=== PATIENT | female | born 1935 | race Caucasian/White ===

== ENCOUNTER 2017-03-06 00:03 | Emergency (ER) | payer MEDICARE ==
[~2017-03-06] VITALS: Ht 160 cm; Wt 64.0 kg
[~2017-03-06 00:03] MED LIST: ATRO17AE INH; CRES10TA PO; DIPH1TAB36 PO; DOCU1CAP39 PO; FURO1TAB93 PO; KCL10C PO; LOSA50TA PO; METO50CR PO; MULT-4 PO; PROT40TA PO; TIMO0.255 EACH EYE; TRAV0.00 EACH EYE; WARF3TAB PO
[2017-03-06 00:05] VITALS: BP 114/68; TEMP 103; O2SAT 99
[2017-03-06 00:13] VITALS: BP 185/78; PULSE 90; RESP 16; TEMP 98; O2SAT 98
--- NOTE | 2017-03-06 00:25 | PD ---
HPI Chief Complaint: MULTIPLE COMPLAINTS Time Seen by Provider: 00:10 Travel History International Travel<30 days: No Contact w/Intl Traveler<30days: No Traveled to known affect area: No History of Present Illness HPI STATES THAT SHE HAD CYSTOSCOPY TO "SCRAPE" BLADDER TUMOR OFF ON TUESDAY...SINCE THEN PATIENT HAS NOT BEEN FEELING "RIGHT". SOME DETAILS OF WHAT NOT RIGHT MEANS , IS NAUSEA, GENERALIZED WEAKNESS, COUGH, PROD OF YELLOW SPUTUM, SOME DIARRHEA ALSO. PCP DR WYMAN IN [place] CHART AND RN NOTES REVIEWED ALL:DENIES PMHX: SIG FOR COPD, CHF, PFSH Past Medical History Atrial Fibrillation: Yes (ON WARFARIN) Heart Rhythm Problems: Yes (AFIB) Cancer: Yes (BLADDER) Cardiovascular Problems: Yes High Cholesterol: Yes Chemotherapy: Yes Chest Pain: No Congestive Heart Failure: Yes (ADMITTED WITH DX) COPD: Yes Diminished Hearing: No Diverticulitis: Yes Endocrine: No Glaucoma: Yes Genitourinary: Yes (HX OF BLADDER CANCER WITH CHEMO TREATMENT) Hypertension: Yes Immune Disorder: No Musculoskeletal: No Neurologic: No Psychiatric: No Reproductive: No Respiratory: Yes Immunizations Current: Yes Radiation Therapy: No Ulcer: Yes (HX OF BLEEDING ULCER) Menopausal: Yes : 2 Para: 2 Past Surgical History Abdominal Surgery: No AICD: No Arteriovenous Shunt: No Body Medical Devices: STENTS IN BILAT GROIN Cardiac Surgery: No Section: Yes (X1) Ear Surgery: No Endocrine Surgery: No Eye Surgery: No Genitourinary Surgery: No Gynecologic Surgery: No Insulin Pump: No Joint Replacement: No Oral Surgery: No Pacemaker: No Thoracic Surgery: No Other Surgery: Yes (Femoral stents) Social History Alcohol Use: Yes (Occ) Tobacco Use: No Substance Use: No Allergies-Medications (Allergen,Severity, Reaction): Coded Allergies: No Known Allergies (Verified Adverse Reaction, Unknown, 03/06/17) Reported Meds & Prescriptions Reported Meds & Active Scripts Active KCl 10 Meq Cap (Potassium Chloride) 10 Meq Capcr 10 Meq PO DAILY Atrovent Hfa (Ipratropium [place]) 17 Mcg Aer 2 Puff INH BID 17 MCG/PUFF Reported Travatan Z (Travoprost) 0.004 % Glen 1 Drop EACH EYE HS Colace 100 Mg Cap (Docusate Sodium) 100 Mg Cap 100 Mg PO DAILY Losartan Potassium 50 MG (Losartan Potassium) 50 Mg Tab 50 Mg PO DAILY Protonix (Pantoprazole Sodium) 40 Mg Tabdr 40 Mg PO DAILY Lasix (Furosemide) 40 Mg Tab 40 Mg PO DAILY Warfarin Sodium 3 mg (Warfarin Sodium) 3 Mg Tab 3 Mg PO DAILY Tylenol Pm (Acetaminophen/Diphenhydramine HCl) Tab 1 Tab PO HS Timoptic (Timolol Maleate) 0.25 % Soln 1 Drop EACH EYE DAILY Vitalee (Multivitamins) Tab 1 PO DAILY Crestor (Rosuvastatin Calcium) 10 Mg Tab 10 Mg PO DAILY Metoprolol Succinate ER (Metoprolol Succinate) 50 Mg Tab 50 Mg PO DAILY Review of Systems Except as stated in HPI: all other systems reviewed are Neg General / Constitutional: Positive: Fever Respiratory: Positive: Cough, Wheezing Gastrointestinal: Positive: Nausea, Diarrhea Neurologic: Positive: Weakness Physical Exam Narrative GENERAL: SKIN: Warm and dry. HEAD: Atraumatic. Normocephalic. EYES: Pupils equal and round. No scleral icterus. No injection or drainage. ENT: No nasal bleeding or discharge. Mucous membranes pink and moist. NECK: Trachea midline. No JVD. CARDIOVASCULAR: Regular rate and rhythm. RESPIRATORY: No accessory muscle use. WHEEZING, RONCHI BILATERALLY GASTROINTESTINAL: Abdomen soft, non-tender, nondistended. MUSCULOSKELETAL: Extremities without clubbing, cyanosis, or edema. No obvious deformities. NEUROLOGICAL: Awake and alert. No obvious cranial nerve deficits. Motor grossly within normal limits. Five out of 5 muscle strength in the arms and legs. Normal speech. PSYCHIATRIC: Appropriate mood and affect; insight and judgment normal. Data Data Last Documented VS Vital Signs Date Time Temp Pulse Resp B/P (MAP) Pulse Ox O2 Delivery O2 Flow Rate FiO2 03/06/17 00:13 98.0 90 16 185/78 (113) 98 Orders Orders Electrocardiogram (03/06/17 00:25) Complete Blood Count With Diff (03/06/17 00:25) Comprehensive Metabolic Panel (03/06/17 00:25) Troponin I (03/06/17 00:25) Prothrombin Time / Inr (Pt) (03/06/17 00:25) Act Partial Throm Time (Ptt) (03/06/17 00:25) Lipase (03/06/17 00:25) Urinalysis - C+S If Indicated (03/06/17 00:25) Influenzae A/B Antigen (03/06/17 00:25) Chest, Single Ap (03/06/17 00:25) Iv Access Insert/Monitor (03/06/17 00:25) Ecg Monitoring (03/06/17 00:25) Oximetry (03/06/17 00:25) Labs Laboratory Tests Test 03/06/17 01:00 White Blood Count 9.1 TH/MM3 Red Blood Count 4.03 MIL/MM3 Hemoglobin 12.4 GM/DL Hematocrit 36.8 % Mean Corpuscular Volume 91.3 FL Mean Corpuscular Hemoglobin 30.8 PG Mean Corpuscular Hemoglobin Concent 33.7 % Red Cell Distribution Width 13.0 % Platelet Count 248 TH/MM3 Mean Platelet Volume 9.5 FL Neutrophils (%) (Auto) 68.8 % Lymphocytes (%) (Auto) 17.9 % Monocytes (%) (Auto) 11.5 % Eosinophils (%) (Auto) 0.6 % Basophils (%) (Auto) 1.2 % Neutrophils # (Auto) 6.3 TH/MM3 Lymphocytes # (Auto) 1.6 TH/MM3 Monocytes # (Auto) 1.0 TH/MM3 Eosinophils # (Auto) 0.1 TH/MM3 Basophils # (Auto) 0.1 TH/MM3 CBC Comment DIFF FINAL Differential Comment Prothrombin Time 10.8 SEC Prothromb Time International Ratio 1.1 RATIO Activated Partial Thromboplast Time 27.0 SEC Blood Urea Nitrogen 22 MG/DL Creatinine 1.18 MG/DL Random Glucose 119 MG/DL Total Protein 7.4 GM/DL Albumin 3.8 GM/DL Calcium Level 8.8 MG/DL Alkaline Phosphatase 71 U/L Aspartate Amino Transf (AST/SGOT) 24 U/L Alanine Aminotransferase (ALT/SGPT) 21 U/L Total Bilirubin 0.7 MG/DL Sodium Level 137 MEQ/L Potassium Level 3.4 MEQ/L Chloride Level 100 MEQ/L Carbon Dioxide Level 29.6 MEQ/L Anion Gap 7 MEQ/L Estimat Glomerular Filtration Rate 44 ML/MIN Troponin I LESS THAN 0.02 NG/ML Lipase 512 U/L [facility] Medical Decision Making Medical Screen Exam Complete: Yes Emergency Medical Condition: Yes Medical Record Reviewed: Yes Differential Diagnosis FLU V PNA V CHF V COPD V GASTROENTERITIS Narrative Course FLU TEST NEG, CXR NEG FOR CHF/PNA....PATIENT SYMPTOMATICALLY C/W GASTROENTERITIS. MILD ELEVATION OF LIPASE, BUT NOT QUITE 2-3X THE BASELINE TO FULLY DIAGNOSE PANCREATITIS. PATIENT TOLERATED PO WELL, AND WOULD LIKE AN OUTPATIENT TRIAL Diagnosis Primary Impression: GASTROENTERITIS Patient Instructions: Full Liquid Diet (GEN), General Instructions, Pancreatitis (ED) Scripts Codeine-Acetaminophen (Codeine-Acetaminophen) 30-300 mg Tab 1 TAB PO Q4H Y for PAIN, #15 TAB 0 Refills Prov: Armaan Rubio MD 03/06/17 Ondansetron (Zofran) 4 Mg Tab 4 MG PO Q6HR Y for NAUSEA OR VOMITING, #14 TAB 0 Refills Prov: Armaan Rubio MD 03/06/17 Disposition: 01 DISCHARGE HOME Condition: Stable Armaan Rubio MD Mar 06, 2017 00:25
--- NOTE | 2017-03-06 01:07 | RADRPT ---
EXAM DATE/TIME: 03/06/2017 00:52 [facility] COMPARISON: CHEST PA & LAT, December 24, 2015, 17:27. INDICATIONS : Cold symptoms for four days. MEDICAL HISTORY : Chronic obstructive pulmonary disease. Carcinoma, bladder. SURGICAL HISTORY : None. ENCOUNTER: Initial ACUITY: 4 - 6 days PAIN SCORE: 0/10 LOCATION: Bilateral chest FINDINGS: A single view of the chest demonstrates the lungs to be symmetrically aerated without evidence of mas s, infiltrate or effusion. The cardiomediastinal contours are unremarkable. Osseous structures are grossly intact. 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 CONCLUSION: No evidence of acute cardiopulmonary disease. Charly Padilla MD on March 06, 2017 at 1:04 Board Certified Radiologist. This report was verified electronically.
[2017-03-06 01:41] LABS: AUTOMATED NEUTROPHIL # 6.3 TH/MM3 (1.8-7.7); BASOPHIL # 0.1 TH/MM3 (0-0.2); BASOPHIL % 1.2 % (0.0-2.0); EOSINOPHIL # 0.1 TH/MM3 (0-0.4); EOSINOPHIL % 0.6 % (0.0-4.0); HEMATOCRIT 36.8 % (35.0-46.0); HEMOGLOBIN 12.4 GM/DL (11.6-15.3); LYMPH % 17.9 % (9.0-44.0); LYMPHOCYTE # 1.6 TH/MM3 (1.0-4.8); MEAN CELL VOLUME 91.3 FL (80.0-100.0); MEAN CORPUSCULAR HEMOGLOBIN 30.8 PG (27.0-34.0); MEAN CORPUSCULAR HGB CONC 33.7 % (32.0-36.0); MEAN PLATELET VOLUME 9.5 FL (7.0-11.0); MONO % 11.5 % (0.0-8.0); NEUT % 68.8 % (16.0-70.0); PLATELET COUNT 248 TH/MM3 (150-450); RED BLOOD COUNT 4.03 MIL/MM3 (4.00-5.30); WHITE BLOOD COUNT 9.1 TH/MM3 (4.0-11.0)
[2017-03-06 01:56] LABS: INTERNATIONAL NORMALIZED RATIO 1.1 RATIO; PROTHROMBIN TIME - PATIENT 10.8 SEC (9.8-11.6)
[2017-03-06 02:28] LABS: ALBUMIN 3.8 GM/DL (3.4-5.0); ALT (GPT) 21 U/L (10-53); AST (GOT) 24 U/L (15-37); BICARBONATE 29.6 MEQ/L (21.0-32.0); BLOOD UREA NITROGEN 22 MG/DL (7-18); CALCIUM 8.8 MG/DL (8.5-10.1); CHLORIDE 100 MEQ/L (98-107); CREATININE 1.18 MG/DL (0.50-1.00); GLOMERULAR FILTRATION RATE 44 ML/MIN (>89); GLUCOSE,RANDOM 119 MG/DL (74-106); LIPASE 512 U/L (73-393); SODIUM (NA) 137 MEQ/L (136-145)
[2017-03-06 02:32] LABS: ALKALINE PHOSPHATASE 71 U/L (45-117); TOTAL BILIRUBIN ADULT 0.7 MG/DL (0.2-1.0); TOTAL PROTEIN 7.4 GM/DL (6.4-8.2); TROPONIN I LESS THAN 0.02 NG/ML (0.02-0.05)
[2017-03-06] MEDS ORDERED: CODE30TA2 PO (03:05)
[2017-03-06] MEDS ORDERED: ZOFR4TAB PO (03:05)
[2017-03-06] MEDS ORDERED: MULT1TAB46 (03:36)
[2017-03-06] MEDS ORDERED: ROSU10 PO (03:36)
[2017-03-06] MEDS ORDERED: PRAV40TA2 PO (03:36)
[2017-03-06] MEDS ORDERED: SPIRCAP INH (03:36)
[2017-03-06] MEDS ORDERED: PANT40TA3 PO (03:36)
[2017-03-06] MEDS ORDERED: LOSA100T PO (03:36)
[2017-03-06] MEDS ORDERED: SYMB80AE INH (03:36)
[2017-03-06] MEDS ORDERED: VITA2000 PO (03:36)
[2017-03-06] MEDS ORDERED: IPRA0.02 NEB (03:36)
[2017-03-06] MEDS ORDERED: METO50TA PO (03:36)
[2017-03-06] MEDS ORDERED: COUM3TAB PO (03:36)
[2017-03-06] MEDS ORDERED: FURO40TA PO (03:36)
== END 2017-03-06 04:00 | disposition home or self-care (01) ==
LOC: NEPC 00:03
DX: K52.9 Noninfective gastroenteritis and colitis, unspecified (principal); R05 Cough; R06.2 Wheezing; J44.9 Chronic obstructive pulmonary disease, unspecified; I11.0 Hypertensive heart disease with heart failure; I50.9 Heart failure, unspecified; I48.91 Unspecified atrial fibrillation; E78.00 Pure hypercholesterolemia, unspecified; H40.9 Unspecified glaucoma
CPT/HCPCS: 71010; 80053; 83690; 84484; 85025; 85610; 85730; 87804; 99284

== ENCOUNTER 2018-05-09 02:18 | Inpatient (IN) ==
[2018-05-09] MEDS ORDERED: dilTIAZem Inj 125 MG in Sodium Chlor 0.9% Inj 100 ML IV.CONT PRN (02:31)
[2018-05-09] MEDS ORDERED: MethylPREDNISolone Sod Succinate Inj 125 MG/2 ML Vial IV.PUSH ONE (02:31)
--- NOTE | 2018-05-09 02:56 | XR ---
EXAM DATE: 05/09/2018 2:43 AM EST AGE/SEX: 82 years / Female INDICATIONS: Short of breath. CLINICAL DATA: This is the patient's initial encounter. Patient reports that signs and symptoms have been present for 1 day and indicates a pain score of 0/10. MEDICAL/SURGICAL HISTORY: Carcinoma, bladder. Chronic obstructive pulmonary disease. None. COMPARISON: [facility] – [place], CHEST SINGLE AP, 03/06/2017. . FINDINGS: Apical lordotic view of the chest shows some increased interstitial markings possibly representing so me interstitial edema. Heart size is borderline prominent. Osseous structures are intact with some de generative changes in the left shoulder. CONCLUSION: 1. Borderline prominent heart with some interstitial prominence possibly representing some vascular congestion or volume overload. 2. No confluent infiltrate. Electronically signed by: Jos Perla MD Board Certified Radiologist 05/09/2018 2:54 AM EST
[2018-05-09 02:59] LABS: Baso # (Auto) 0.1 th/mm3 (0.0-0.2); Baso % (Auto) 0.7 % (0.0-2.0); Eos # (Auto) 0.2 th/mm3 (0.0-0.4); Eos % (Auto) 1.9 % (0.0-4.0); Hematocrit 38.2 % (35.0-46.0); Hemoglobin 13.1 gm/dL (11.6-15.3); Lymph # (Auto) 3.1 th/mm3 (1.0-4.8); Lymph % (Auto) 25.8 % (9.0-44.0); Mean Corpuscular HGB Conc 34.3 % (32.0-36.0); Mean Corpuscular Hemoglobin 31.4 pg (27.0-34.0); Mean Corpuscular Volume 91.4 fL (80.0-100.0); Mean Platelet Volume 8.8 fL (7.0-11.0); Mono # (Auto) 0.8 th/mm3 (0.0-0.9); Mono % (Auto) 6.9 % (0.0-8.0); Neut # (Auto) 7.9 th/mm3 (1.8-7.7); Neut % (Auto) 64.7 % (16.0-70.0); Platelet Count 283 th/mm3 (150-450); Red Blood Count 4.18 mil/mm3 (4.00-5.30); Red Cell Distribution Width 13.4 % (11.6-17.2); White Blood Count 12.2 th/mm3 (4.0-11.0)
[2018-05-09 03:10] LABS: Activated Partial Thrombo Time 34.8 sec (23.4-31.7); INR 1.6 Ratio; Prothrombin Time 15.8 sec (9.8-11.6)
[2018-05-09 03:20] LABS: Alanine Aminotransferase 24 U/L (10-53); Albumin 4.3 g/dL (3.4-5.0); Anion Gap 7 meq/L (5-15); Aspartate Aminotransferase 26 U/L (15-37); Blood Urea Nitrogen 20 mg/dL (7-18); Calcium 9.9 mg/dL (8.5-10.1); Carbon Dioxide 24.7 meq/L (21.0-32.0); Chloride 109 meq/L (98-107); Glomerular Filtration Rate 40 mL/min (>89); Glucose,Random 114 mg/dL (74-106); Potassium 4.2 meq/L (3.5-5.1); Sodium 141 meq/L (136-145)
[2018-05-09 03:24] LABS: Alkaline Phosphatase 82 U/L (45-117); Total Protein 8.3 g/dL (6.4-8.2)
--- NOTE | 2018-05-09 04:38 | ED ---
HPI General Chief Complaint: Shortness of Breath/Dyspnea Stated Complaint: Respiratory Time Seen by Provider: 05/09/18 02:25 Source: patient Mode of arrival: ambulatory Limitations: no limitations History of Present Illness The patient is 82 years old and arrives to the ER with a complaint of shortness of breath. Duration has been a couple days. She has a history of COPD. She reports a history of CHF and reports noncompliance with diuretics due to kidney failure. She has a chronic mild cough which is unchanged. No fever. Dyspnea on exertion is reported as is dyspnea at rest. She tried a steroid nebulizers twice today and 2 inhalations of her rescue inhaler at home which did not confer much benefit. reports patient stopped taking budesonide about 2 weeks ago the past of patient's assembler product. The patient has no chest pain in the ED. Related Data Home Medications Medication Instructions Recorded Confirmed budesonide-formoterol [Symbicort] 2 puff INHALATION BID 05/09/18 05/09/18 rosuvastatin 10 mg PO DAILY 05/09/18 05/09/18 warfarin 3 mg PO Q OTHER DAY 05/09/18 05/09/18 Allergies Allergy/AdvReac Type Severity Reaction Status Date / Time No Known Allergies Unknown Uncoded 03/06/17 00:23 Review of Systems ROS: all other systems reviewed are negative PMFSH Medical History Medical History Afib (Acute) CHF (congestive heart failure) (Acute) CKD (chronic kidney disease) (Acute) COPD (chronic obstructive pulmonary disease) (Acute) Hypertension (Acute) Surgical History Surgical History No history of previous surgery (Acute) Social History Social History Substance History: No History of Abuse Second Hand Smoke Exposure: No Smoking Status: Former smoker How Often Do You Have a Drink Containing Alcohol: Monthly or less Recent Travel in [facility] within the Last 8 Weeks: No Recent Out of Country Travel within the Last 8 Weeks: No Immunization History Tetanus Immunization: <5 Years Exam Narrative Exam Narrative: GENERAL: 83-year-old female pleasant well-nourished well- developed conversational dyspnea is present SKIN: Focused skin assessment warm/dry. HEAD: Atraumatic. Normocephalic. EYES: Pupils equal and round. No scleral icterus. No injection or drainage. ENT: No nasal bleeding or discharge. Mucous membranes pink and moist. NECK: Trachea midline. No JVD. CARDIOVASCULAR: Irregular rhythm. Heart rate up to 160s. RESPIRATORY: Respiratory rate is approximately 24 breaths a minute. Minimal wheezing present bilaterally. GASTROINTESTINAL: Abdomen soft, non-tender, nondistended. Hepatic and splenic margins not palpable. MUSCULOSKELETAL: 2+ pitting edema bilaterally. No gross deformity of the NEUROLOGICAL: Awake and alert. No obvious cranial nerve deficits. Motor grossly within normal limits. Normal speech. PSYCHIATRIC: Appropriate mood and affect; insight and judgment normal. Course Initial Documented Vital Signs Pulse Rate 144 H 05/09/18 02:23 Respiratory Rate 35 H 05/09/18 02:23 Blood Pressure 212/134 H 05/09/18 02:23 Pulse Oximetry 97 05/09/18 02:23 Last Documented Vital Signs Pulse Rate 101 H 05/09/18 04:39 Respiratory Rate 28 H 05/09/18 04:39 Blood Pressure 160/72 H 05/09/18 04:39 Pulse Oximetry 97 05/09/18 04:39 Critical Care Time Critical Care Time: Yes Total Critical Care Time: 35 Attestation: Aggregate critical care time was 35 minutes. Time to perform other separately billable procedures was not included in the critical care time. My time did not include minutes spent treating any other patients simultaneously or on activities that did not directly contribute to the patient's treatment. The services I provided to this patient were to treat and/or prevent clinically significant deterioration that could result in: Cardiopulmonary arrest, dysrhythmia I provided critical care services requiring my management, as noted below: Chart data review, documentation time, medication orders and management, vital sign assessments/reviewing monitor data, ordering and reviewing lab tests, ordering and interpreting/reviewing x-rays and diagnostic studies, care of the patient and discussion of the patient with the admitting physicians. Medical Decision Making MDM Narrative Medical decision making narrative: White blood cell count of 12,200 with a hemoglobin of 13.1 and a platelet count of 283 BUN/creatinine is 20/1.27 Troponin is less than 0.02 Chest x-ray shows cardiomegaly with interstitial prominence concerning for CHF The patient received albuterol ipratropium here with marginal benefit. Diltiazem boluses 15 mg x2 given with a heart rate dropping into the 90s persistently irregular. Diltiazem drip started. Patient has a known history of A. fib. She reports compliance with Coumadin. 40 mg IV Lasix started. Patient reports minimal improvement the time of reassessment, 4:30 AM. O2 sat is 97% on 4 L. Patient ambulated in the ED and the O2 sat decreased to 88% in the heart rate increased to about 120. Oxygen sat increased to mid 90s shortly after returning to the bed. Case discussed with Dr. Wagner for the hospitalist service. Medical Screen Exam Complete: Yes Emergency Medical Condition: Yes Lab Data Result diagrams: 05/09/18 02:48 05/09/18 02:48 Lab Results 05/09/18 05/09/18 05/09/18 Range/Units 02:48 02:48 02:48 WBC 12.2 H (4.0-11.0) th/mm3 RBC 4.18 (4.00-5.30) mil/mm3 Hgb 13.1 (11.6-15.3) gm/dL Hct 38.2 (35.0-46.0) % MCV 91.4 (80.0-100.0) fL MCH 31.4 (27.0-34.0) pg MCHC 34.3 (32.0-36.0) % RDW 13.4 (11.6-17.2) % Plt Count 283 (150-450) th/mm3 MPV 8.8 (7.0-11.0) fL Neut % (Auto) 64.7 (16.0-70.0) % Lymph % (Auto) 25.8 (9.0-44.0) % Ponce % (Auto) 6.9 (0.0-8.0) % Eos % (Auto) 1.9 (0.0-4.0) % Baso % (Auto) 0.7 (0.0-2.0) % Neut # (Auto) 7.9 H (1.8-7.7) th/mm3 Lymph # (Auto) 3.1 (1.0-4.8) th/mm3 Ponce # (Auto) 0.8 (0.0-0.9) th/mm3 Eos # (Auto) 0.2 (0.0-0.4) th/mm3 Baso # (Auto) 0.1 (0.0-0.2) th/mm3 WBC Differential . Differential Comment Auto diff final PT 15.8 H (9.8-11.6) sec INR 1.6 Ratio APTT 34.8 H (23.4-31.7) sec Sodium 141 (136-145) meq/L Potassium 4.2 (3.5-5.1) meq/L Chloride 109 H (98-107) meq/L Carbon Dioxide 24.7 (21.0-32.0) meq/L Anion Gap 7 (5-15) meq/L BUN 20 H (7-18) mg/dL Creatinine 1.27 H (0.50-1.00) mg/dL Estimated GFR 40 L (>89) mL/min Random Glucose 114 H (74-106) mg/dL Calcium 9.9 (8.5-10.1) mg/dL Total Bilirubin 1.0 (0.2-1.0) mg/dL AST 26 (15-37) U/L ALT 24 (10-53) U/L Alkaline Phosphatase 82 (45-117) U/L Troponin I Less than 0.02 L (0.02-0.05) ng/mL B-Natriuretic Peptide (0-100) pg/mL Total Protein 8.3 H (6.4-8.2) g/dL Albumin 4.3 (3.4-5.0) g/dL 05/09/18 Range/Units 02:48 WBC (4.0-11.0) th/mm3 RBC (4.00-5.30) mil/mm3 Hgb (11.6-15.3) gm/dL Hct (35.0-46.0) % MCV (80.0-100.0) fL MCH (27.0-34.0) pg MCHC (32.0-36.0) % RDW (11.6-17.2) % Plt Count (150-450) th/mm3 MPV (7.0-11.0) fL Neut % (Auto) (16.0-70.0) % Lymph % (Auto) (9.0-44.0) % Ponce % (Auto) (0.0-8.0) % Eos % (Auto) (0.0-4.0) % Baso % (Auto) (0.0-2.0) % Neut # (Auto) (1.8-7.7) th/mm3 Lymph # (Auto) (1.0-4.8) th/mm3 Ponce # (Auto) (0.0-0.9) th/mm3 Eos # (Auto) (0.0-0.4) th/mm3 Baso # (Auto) (0.0-0.2) th/mm3 WBC Differential Differential Comment PT (9.8-11.6) sec INR Ratio APTT (23.4-31.7) sec Sodium (136-145) meq/L Potassium (3.5-5.1) meq/L Chloride (98-107) meq/L Carbon Dioxide (21.0-32.0) meq/L Anion Gap (5-15) meq/L BUN (7-18) mg/dL Creatinine (0.50-1.00) mg/dL Estimated GFR (>89) mL/min Random Glucose (74-106) mg/dL Calcium (8.5-10.1) mg/dL Total Bilirubin (0.2-1.0) mg/dL AST (15-37) U/L ALT (10-53) U/L Alkaline Phosphatase (45-117) U/L Troponin I (0.02-0.05) ng/mL B-Natriuretic Peptide 230 H (0-100) pg/mL Total Protein (6.4-8.2) g/dL Albumin (3.4-5.0) g/dL Imaging Data Radiologist's impression: Chest X-Ray 05/09/18 02:31 CONCLUSION: 1. Borderline prominent heart with some interstitial prominence possibly representing some vascular congestion or volume overload. 2. No confluent infiltrate. Discharge Plan Discharge Disposition Patient Disposition: ED Admit(ED Internal Use Only) Discharge Order Discharge Orders: ED Use Only Admit Order (Routine); Ordered 05/09/18 Ordered By: Devaughn Jo Physicians Team ED Provider: Devaughn Jo Primary Care Provider: Deedee Asencio Rxs /Orders / Referrals /Forms Prescriptions: No Action warfarin 3 mg Tablet 3 mg PO Q OTHER DAY RF: 0 rosuvastatin 10 mg Tablet 10 mg PO DAILY RF: 0 budesonide-formoterol [Symbicort] 160-4.5 mcg/actuation Hfa Aerosol Inhaler 2 puff INHALATION BID RF: 0 Discharge Interventions Interventions: Vital Signs Last Done: 05/09/18 04:39 Status ED Status: Admitted Patient
[2018-05-09] MEDS ORDERED: Acetaminophen 325 MG Tablet PO PRN (06:24)
[2018-05-09] MEDS ORDERED: Bisacodyl 10 MG Supp RECTAL PRN (06:24)
[2018-05-09] MEDS ORDERED: Warfarin Consult Pharmacy OTHER PRN (08:18)
--- NOTE | 2018-05-09 09:07 | P.HPIM ---
History of Present Illness Primary Care Physician: Deedee Asencio DO Chief Complaint: Shortness of breath History of Present Illness: This is a 82-year-old female with a history of COPD , chronic respiratory failure, congestive heart failure, atrial fibrillation, hypertension and chronic kidney disease stage III. She is followed by Dr. Swann, Dr. Dao and Dr. Gauthier. She presents to the emergency department because of shortness of breath for the past 2 days. She reports of dyspnea on exertion, dyspnea at rest, orthopnea, wheezing and chronic cough. She has been using rescue inhaler and Symbicort. Her deputy attorney general took her off diuretics because of her kidney dysfunction. Denies weight gain and has stable bilateral lower extremity edema. In the ED she was in A. fib RVR EKG independently reviewed by me and was given 2 boluses of Cardizem 15 mg IV and currently on Cardizem drip. She also was given IV Lasix and Solu-Medrol. At this time patient is feeling better with controlled ventricular response. All other systems reviewed negative Inpatient Certification Inpatient Certification: I certify that the inpatient services were ordered in accordance with Medicare regulations governing the order. This includes certification that hospital inpatient services are reasonable and necessary and in the case of services not specified as inpatient-only under 42 CFR 419.22(n), that they are appropriately provided as inpatient services in accordance to with the 2-midnight benchmark under 43 CFR 412.3(e) Estimated Total Length of Stay (Days): 3 Plans for Post Hospital Care: Not yet determined Review of Systems Review of Systems: all other systems reviewed are negative [facility] Medical History Medical History Afib (Acute) CHF (congestive heart failure) (Acute) CKD (chronic kidney disease) (Acute) COPD (chronic obstructive pulmonary disease) (Acute) Hypertension (Acute) Surgical History Surgical History Previous section (Acute) No history of previous surgery (Acute) Family History Family History Other Lung cancer Social History Social History Substance History: No History of Abuse Second Hand Smoke Exposure: No Smoking Status: Former smoker How Often Do You Have a Drink Containing Alcohol: Monthly or less Recent Travel in [facility] within the Last 8 Weeks: No Recent Out of Country Travel within the Last 8 Weeks: No Immunization History Tetanus Immunization: <5 Years Medications and Allergies Allergies Allergy/AdvReac Type Severity Reaction Status Date / Time No Known Allergies Unknown Uncoded 03/06/17 00:23 Home Medications Medication Instructions Recorded Confirmed Type budesonide-formoterol [Symbicort] 2 puff INHALATION BID 05/09/18 05/09/18 History rosuvastatin 10 mg PO DAILY 05/09/18 05/09/18 History warfarin 3 mg PO Q OTHER DAY 05/09/18 05/09/18 History Active Medications: Active Medications Acetaminophen (Tylenol) 650 mg PO Q4H PRN PRN Reason: Temp > 100.4 Al Hydroxide/Mg Hydroxide (Milk Of Magnesia Liq) 30 ml PO Q12H PRN PRN Reason: Mild Constipation Albuterol (Albuterol Neb (Prn)) 2.5 mg NEB Q2H PRN PRN Reason: SHORTNESS OF BREATH Albuterol (Duoneb Neb (Jade)) 1 ampul NEB TID JADE Azithromycin (Zithromax) 500 mg PO DAILY JADE Stop: 05/11/18 09:01 Bisacodyl (Dulcolax Supp) 10 mg RECTAL DAILY PRN PRN Reason: SEVERE CONSITIPATION Budesonide/Formoterol Fumarate (Symbicort 160/4.5 Mcg Inh) 2 puff INH BID JADE Diltiazem HCl (Cardizem) 30 mg PO QID [facility] Diltiazem HCl 125 mg/ Sodium (Chloride) 125 mls @ 5 mls/hr IV.CONT TITRATE PRN ; Protocol PRN Reason: Per Protocol Last Admin: 05/09/18 03:40 Dose: 5 mg/hr, 5 mls/hr Lactulose (Lactulose Liq) 30 ml PO DAILY PRN PRN Reason: SEVERE CONSITIPATION Non-Formulary Medication (Rosuvastatin [Rosuvastatin]) 10 mg PO DAILY [facility] Ondansetron HCl (Zofran Inj) 4 mg IV.PUSH Q6H PRN PRN Reason: NAUSEA OR VOMITING Patient Medication Teaching (Coumadin Booklet) 1 each OTHER ONCE ONE Stop: 05/09/18 08:19 Patient Medication Teaching (Coumadin Booklet) 1 each OTHER ONCE ONE Stop: 05/09/18 08:19 Pharmacy Profile Note (Coumadin Consult Pharmacy) 1 each OTHER UNSCH PRN PRN Reason: PHARMACY DOCUMENTATION Prednisone (Deltasone) 20 mg PO DAILY [facility] Senna/Docusate Sodium (Antonette-Colace) 1 tab PO BID [facility] Sennosides (Senokot) 17.2 mg PO Q12H PRN PRN Reason: Moderate Constipation Sodium Chloride (Ns Flush) 2 ml IV.FLUSH BID JADE Sodium Chloride (Ns Flush) 2 ml IV.FLUSH PRN PRN PRN Reason: FLUSH AFTER USING IV ACCESS Warfarin Sodium (Coumadin) 3 mg PO Q OTHER DAY [facility] Physical Exam Vital signs: Vital Signs 05/09/18 02:23 05/09/18 02:36 05/09/18 02:46 Pulse Rate 144 H 103 H 97 H Respiratory Rate 35 H 22 22 Blood Pressure 212/134 H Pulse Oximetry 97 98 05/09/18 02:52 05/09/18 03:02 05/09/18 03:09 Pulse Rate 96 H 91 H 96 H Respiratory Rate 30 H 28 H 30 H Blood Pressure 211/81 H 141/91 H 207/108 H Pulse Oximetry 97 96 97 05/09/18 04:00 05/09/18 04:39 05/09/18 06:25 Pulse Rate 95 H 101 H 92 H Respiratory Rate 26 H 28 H 18 Blood Pressure 169/72 H 160/72 H 133/60 Pulse Oximetry 98 97 100 05/09/18 08:17 Pulse Rate Respiratory Rate Blood Pressure Pulse Oximetry 97 Intake & Output 05/08/18 05/09/18 05/09/18 18:59 06:59 18:59 Weight 65.771 kg Narrative: GENERAL: Well-developed, well-nourished in no distress on nasal cannula SKIN: Warm and dry. HEAD: Atraumatic. Normocephalic. EYES: Pupils equal and round. No scleral icterus. No injection or drainage. ENT: No nasal bleeding or discharge. Mucous membranes pink and moist. NECK: Trachea midline. No JVD. CARDIOVASCULAR: Irregularly irregular RESPIRATORY: No accessory muscle use. Clear to auscultation. Breath sounds equal bilaterally. GASTROINTESTINAL: Abdomen soft, non-tender, nondistended. MUSCULOSKELETAL: Extremities without clubbing, cyanosis but with bilateral lower extremity pedal edema. No obvious deformities. NEUROLOGICAL: Awake and alert. No obvious cranial nerve deficits. Motor grossly within normal limits. Five out of 5 muscle strength in the arms and legs. Normal speech. PSYCHIATRIC: Appropriate mood and affect; insight and judgment normal. Results Labs CBC & Chem 7: 05/09/18 02:48 05/09/18 02:48 Imaging Impressions Chest X-Ray 05/09/18 02:31 CONCLUSION: 1. Borderline prominent heart with some interstitial prominence possibly representing some vascular congestion or volume overload. 2. No confluent infiltrate. Caprini VTE Risk Assessment Caprini VTE Risk Assessment: Moderate/High Risk (score >= 2) Caprini Risk Assessment Model: Point Value = 1 Point Value = 2 Point Value = 3 Point Value = 5 Age 41-60 Minor surgery BMI > 25 kg/m2 Swollen legs Varicose veins or History of unexplained or recurrent spontaneous Oral contraceptives or hormone replacement Sepsis (< 1 month) Serious lung disease, including pneumonia (< 1 month) Abnormal pulmonary function Acute myocardial infarction Congestive heart failure (< 1 month) History of inflammatory bowel disease Medical patient at bed rest Age 61-74 Arthroscopic surgery Major open surgery (> 45 min) Laparoscopic surgery (> 45 min) Malignancy Confined to bed (> 72 hours) Immobilizing plaster cast Central venous access Age >= 75 History of VTE Family history of VTE Factor V Leiden Prothrombin [id number] Lupus anticoagulant Anticardiolipin antibodies Elevated serum homocysteine Heparin-induced thrombocytopenia Other congenital or acquired thrombophilia Stroke (< 1 month) Elective arthroplasty Hip, pelvis, or leg fracture Acute spinal cord injury (< 1 month) Prophylaxis Regimen: Total Risk Factor Score Risk Level Prophylaxis Regimen 0-1 Low Early ambulation 2 Moderate Order ONE of the following: *Sequential Compression Device (SCD) *Heparin 5000 units SQ BID 3-4 Higher Order ONE of the following medications: *Heparin 5000 units SQ TID *Enoxaparin/Lovenox 40 mg SQ daily (WT < 150 kg, CrCl > 30 mL/min) *Enoxaparin/Lovenox 30 mg SQ daily (WT < 150 kg, CrCl > 10-29 mL/min) *Enoxaparin/Lovenox 30 mg SQ BID (WT < 150 kg, CrCl > 30 mL/min) AND/OR *Sequential Compression Device (SCD) 5 or more Highest Order ONE of the following medications: *Heparin 5000 units SQ TID (Preferred with Epidurals) *Enoxaparin/Lovenox 40 mg SQ daily (WT < 150 kg, CrCl > 30 mL/min) *Enoxaparin/Lovenox 30 mg SQ daily (WT < 150 kg, CrCl > 10-29 mL/min) *Enoxaparin/Lovenox 30 mg SQ BID (WT < 150 kg, CrCl > 30 mL/min) AND *Sequential Compression Device (SCD) Assessment and Plan Plan This is a 82-year-old female with a history of COPD, chronic respiratory failure , congestive heart failure, atrial fibrillation, hypertension and chronic kidney disease stage III. She is followed by Dr. Swann, Dr. Dao and Dr. Gauthier. She presents to the emergency department because of shortness of breath for the past 2 days. She reports of dyspnea on exertion, dyspnea at rest , orthopnea, wheezing and chronic cough. She has been using rescue inhaler and Symbicort. Her deputy attorney general took her off diuretics because of her kidney dysfunction. Denies weight gain and has stable bilateral lower extremity edema. In the ED she was in A. fib RVR and was given 2 boluses of Cardizem 15 mg IV and started on Cardizem drip. She also was given IV Lasix and Solu- Medrol. CHF exac with hypoxia likely secondary to RVR and COPD exacerbation. Improved. CHF education, I/O and monitor weight. May need pulse doses of diuretics with close monitoring of renal function history of chronic kidney disease stage III. Obtain 2D echo COPD exac with CRF. Improved. Continue nebulization, steroids and start Zithromax Fib with RVR. Improved start p.o. Cardizem and wean Cardizem drip. Check TSH Leukocytosis. Will be on Zithromax DVT prophylaxis on SCD and Coumadin
[2018-05-09] MEDS: Azithromycin 250 MG Tablet PO SCH (10:39)
[2018-05-09] MEDS: dilTIAZem 30 MG Tablet PO SCH ×4 (10:39→20:22)
[2018-05-09] MEDS: Senna/Docusate Sodium 8.6/50 MG Tablet PO SCH ×2 (10:39→20:22)
[2018-05-09] MEDS: Budesonide-Formoterol 160/4.5 MCG 6 GM Inhaler INH SCH ×2 (10:52→21:38)
--- NOTE | 2018-05-09 14:31 | ECG ---
Date Performed: 05/09/2018 Time Performed: 02:28:23 PTAGE: 82 years EKG: ATRIAL FIBRILLATION WITH RAPID VENTRICULAR RESPONSE NONSPECIFIC ST & T-WAVE ABNORMALITY ABN ORMAL ECG Since the PREVIOUS TRACING , no significant change noted DOCTOR: Conrado Nair Interpretating Date/Time 05/09/2018 14:26:41
--- NOTE | 2018-05-09 16:13 | ECHRPT ---
Indication: Cardiomyopathy CONCLUSIONS Normal left ventricular size. Wall thickness is normal. The left ventricular systolic function is normal with an estimated ejection fraction in the range of 60-65%. The left atrial size is mildly dilated. [id number] mitral valve regurgitation. Mild thickening of the aortic valve leaflets. Trace aortic valve regurgitation. The estimated pulmonary arterial pressure is 39 mmHg. There is mild tricuspid valve regurgitation. BP: / HR: Rhythm: MEASUREMENTS (Male / Female) Normal Values Technical Quality: 2D ECHO LV Diastolic Diameter PLAX 4.2 cm 4.2 - 5.9 / 3.9 - 5.3 cm LV Systolic Diameter PLAX 2.9 cm IVS Diastolic Thickness 1.0 cm 0.6 - 1.0 / 0.6 - 0.9 cm LVPW Diastolic Thickness 1.0 cm 0.6 - 1.0 / 0.6 - 0.9 cm LV Relative Wall Thickness 0.5 RV Internal Dim ED PLAX 2.8 cm LVOT Diameter 1.7 cm Aortic Root Diameter 2.8 cm LA Systolic Diameter LX 3.3 cm 3.0 - 4.0 / 2.7 - 3.8 cm M-MODE Aortic Root Diameter MM 2.6 cm LA Systolic Diameter MM 4.3 cm LA Ao Ratio MM 1.7 AV Cusp Separation MM 1.4 cm DOPPLER AV Peak Velocity 176.0 cm/s AV Peak Gradient 12.4 mmHg AI Peak Velocity 270.0 cm/s AI Peak Gradient 29.2 mmHg AI Pressure Half Time 237.0 ms LVOT Peak Velocity 106.0 cm/s LVOT Peak Gradient 4.5 mmHg AV Area Cont Eq pk 1.4 cm Mitral E Point Velocity 115.0 cm/s LV E' Lateral Velocity 5.9 cm/s Mitral E to LV E' Lateral Ratio 19.7 LV E' Septal Velocity 6.8 cm/s Mitral E to LV E' Septal Ratio 16.9 TR Peak Velocity 269.0 cm/s TR Peak Gradient 28.9 mmHg Right Atrial Pressure 10.0 mmHg Pulmonary Artery Systolic Pressu 38.9 mmHg Right Ventricular Systolic Press 38.9 mmHg PV Peak Velocity 136.0 cm/s PV Peak Gradient 7.4 mmHg FINDINGS LEFT VENTRICLE Normal left ventricular size. Wall thickness is normal. The left ventricular systolic function is normal with an estimated ejection fraction in the range of 60-65%. RIGHT VENTRICLE Normal right ventricular size and systolic function. LEFT ATRIUM The left atrial size is mildly dilated. RIGHT ATRIUM The right atrial size is normal. ATRIAL SEPTUM Normal atrial septal thickness without atrial level shunting by limited color doppler interrogation. AORTA The aortic root and proximal ascending aorta are normal in size on limited imaging. MITRAL VALVE Mild thickening of the mitral valve leaflets. [id number] mitral valve regurgitation. AORTIC VALVE Mild thickening of the aortic valve leaflets. Trace aortic valve regurgitation. TRICUSPID VALVE The estimated pulmonary arterial pressure is 39 mmHg. There is mild tricuspid valve regurgitation. PULMONARY VALVE No pulmonary valve regurgitation or stenosis. VESSELS The inferior vena cava is normal in size. PERICARDIUM No pericardial effusion. Mega Cantu (Electronically Signed) Final Date:09 May 2018 16:12
[2018-05-10] MEDS: Azithromycin 250 MG Tablet PO SCH (08:51)
[2018-05-10] MEDS: Senna/Docusate Sodium 8.6/50 MG Tablet PO SCH ×2 (08:51→21:12)
[2018-05-10] MEDS: dilTIAZem 30 MG Tablet PO SCH (08:51)
[2018-05-10] MEDS: predniSONE 20 MG Tablet PO SCH (08:51)
[2018-05-10] MEDS: Budesonide-Formoterol 160/4.5 MCG 6 GM Inhaler INH SCH ×2 (08:52→21:12)
[2018-05-10 09:20] LABS: Baso # (Auto) 0.1 th/mm3 (0.0-0.2); Baso % (Auto) 0.5 % (0.0-2.0); Hematocrit 33.3 % (35.0-46.0); Hemoglobin 11.3 gm/dL (11.6-15.3); Lymph # (Auto) 2.2 th/mm3 (1.0-4.8); Lymph % (Auto) 16.5 % (9.0-44.0); Mean Platelet Volume 8.9 fL (7.0-11.0); Mono # (Auto) 0.9 th/mm3 (0.0-0.9); Mono % (Auto) 6.3 % (0.0-8.0); Neut # (Auto) 10.4 th/mm3 (1.8-7.7); Neut % (Auto) 76.7 % (16.0-70.0); Platelet Count 285 th/mm3 (150-450); Red Blood Count 3.65 mil/mm3 (4.00-5.30); Red Cell Distribution Width 13.6 % (11.6-17.2); White Blood Count 13.6 th/mm3 (4.0-11.0)
[2018-05-10 09:21] LABS: INR 1.8 Ratio; Prothrombin Time 18.7 sec (9.8-11.6)
[2018-05-10 09:49] LABS: Calcium 9.6 mg/dL (8.5-10.1); Potassium 3.9 meq/L (3.5-5.1)
--- NOTE | 2018-05-10 10:33 | P.PNIM ---
Subjective Interval history: F/U CHf and Fib. Better but congested tele CVR dw RN Physical Exam Vital signs: Vital Signs 05/09/18 12:40 05/09/18 13:54 05/09/18 16:00 Temperature 97.5 F L Pulse Rate 82 85 68 Respiratory Rate 20 19 18 Blood Pressure 140/72 137/62 Pulse Oximetry 99 98 05/09/18 20:00 05/10/18 00:00 05/10/18 00:33 Temperature 98.1 F 98.6 F Pulse Rate 73 80 62 Respiratory Rate 16 16 Blood Pressure 132/55 L 119/48 L Pulse Oximetry 98 97 05/10/18 04:00 05/10/18 08:00 05/10/18 08:04 Temperature 98.3 F Pulse Rate 65 62 78 Respiratory Rate 16 18 Blood Pressure 114/51 L Pulse Oximetry 97 95 05/10/18 08:18 Temperature 97.7 F Pulse Rate 74 Respiratory Rate 20 Blood Pressure 127/58 L Pulse Oximetry 98 Intake & Output 05/09/18 05/10/18 05/10/18 18:59 06:59 18:59 Intake Total 280 / 280 Balance 280 / 280 Weight 65.771 kg Intake: IV 40 / 40 Cardizem Inj 125 MG In NS Inj 40 / 40 100 ML @ 5 MG/HR 5 mls/hr IV. CONT TITRATE PRN Rx#:[id number] Oral 240 / 240 Other: # Voids 1 2 Narrative: GENERAL: Well-developed, well-nourished in no distress on nasal cannula SKIN: Warm and dry. CARDIOVASCULAR: Irregularly irregular RESPIRATORY: No accessory muscle use. R basal crackles GASTROINTESTINAL: Abdomen soft, non-tender, nondistended. MUSCULOSKELETAL: Extremities without clubbing, cyanosis but with bilateral lower extremity pedal edema. No obvious deformities. NEUROLOGICAL: Awake and alert. No obvious cranial nerve deficits. Motor grossly within normal limits. Five out of 5 muscle strength in the arms and legs. Normal speech. PSYCHIATRIC: Appropriate mood and affect; insight and judgment normal. Results Labs CBC & Chem 7: 05/10/18 08:34 05/10/18 08:34 Procedures Procedures: none Assessment and Plan Plan This is a 82-year-old female with a history of COPD, chronic respiratory failure , congestive heart failure, atrial fibrillation, hypertension and chronic kidney disease stage III. She is followed by Dr. Swann, Dr. Dao and Dr. Gauthier. She presents to the emergency department because of shortness of breath for the past 2 days. She reports of dyspnea on exertion, dyspnea at rest , orthopnea, wheezing and chronic cough. She has been using rescue inhaler and Symbicort. Her retail planner took her off diuretics because of her kidney dysfunction. Denies weight gain and has stable bilateral lower extremity edema. In the ED she was in A. fib RVR and was given 2 boluses of Cardizem 15 mg IV and started on Cardizem drip. She also was given IV Lasix and Solu- Medrol. CHF exac(preserved EF) with hypoxia likely secondary to RVR and COPD exacerbation. Improving but still congested with crackles on exam. CHF education, I/O and monitor weight. May need pulse doses of diuretics with close monitoring of renal function history of chronic kidney disease stage III. Lasix 20 mg IV x 1 ECHO results : Normal left ventricular size. Wall thickness is normal. The left ventricular systolic function is normal with an estimated ejection fraction in the range of 60-65%. The left atrial size is mildly dilated. [id number] mitral valve regurgitation. Mild thickening of the aortic valve leaflets. COPD exac with CRF. Improved. Continue nebulization, steroids and Zithromax Fib with RVR. Improved start p.o. Cardizem s/p Cardizem drip. TSH ok Leukocytosis. On Zithromax. Will not repeat while on steroids DVT prophylaxis on SCD and Coumadin Progress Note: Quality VTE Deep Vein Thrombosis/Pulmonary Embolism Present on Admission: Yes
[2018-05-10] MEDS: dilTIAZem CD 120 MG Capsule PO SCH (16:04)
[2018-05-11 07:29] LABS: Prothrombin Time 20.1 sec (9.8-11.6)
[2018-05-11 07:51] LABS: Calcium 9.2 mg/dL (8.5-10.1); Carbon Dioxide 26.5 meq/L (21.0-32.0); Magnesium 2.2 mg/dL (1.5-2.5); Potassium 3.9 meq/L (3.5-5.1)
[2018-05-11 08:43] VITALS: BP 136/69; TEMP 97.7
[2018-05-11 08:57] VITALS: PULSE 60; RESP 18; O2SAT 97
[2018-05-11] MEDS: dilTIAZem CD 120 MG Capsule PO SCH (09:41)
[2018-05-11] MEDS: predniSONE 20 MG Tablet PO SCH (09:42)
[2018-05-11] MEDS: Senna/Docusate Sodium 8.6/50 MG Tablet PO SCH (09:43)
[2018-05-11] MEDS: Azithromycin 250 MG Tablet PO SCH (09:44)
[2018-05-11] MEDS: Budesonide-Formoterol 160/4.5 MCG 6 GM Inhaler INH SCH (09:44)
--- NOTE | 2018-05-11 10:25 | P.DCO ---
Home Health Nursing Order: Medical education, Signs/symptoms of disease process, Medication education-adverse effect and Nursing assessment with vital signs Case Management Consult Case Management Consult-Home Health: Yes I have seen patient Avelina Sebastian on 05/11/18. My clinical findings support the need for the requested home health care services because: Limited mobility due to disease progression and Limited ability to care for self I certify that my clinical findings support that this patient is homebound because: Need for psychosocial assistance
--- NOTE | 2018-05-11 10:32 | P.DS ---
DS: Providers Date of admission: 05/09/18 05:17 Primary care physician: Deedee Asencio DO Brief History from admission: This is a 82-year-old female with a history of COPD, chronic respiratory failure, congestive heart failure, atrial fibrillation , hypertension and chronic kidney disease stage III. She is followed by Dr. Renee, Dr. Dao and Dr. Gauthier. She presents to the emergency department because of shortness of breath for the past 2 days. She reports of dyspnea on exertion, dyspnea at rest, orthopnea, wheezing and chronic cough. She has been using rescue inhaler and Symbicort. Her roller picker took her off diuretics because of her kidney dysfunction. Denies weight gain and has stable bilateral lower extremity edema. In the ED she was in A. fib RVR EKG independently reviewed by me and was given 2 boluses of Cardizem 15 mg IV and currently on Cardizem drip. She also was given IV Lasix and Solu-Medrol. At this time patient is feeling better with controlled ventricular response. All other systems reviewed negative DS: Summary This is a 82-year-old female with a history of COPD, chronic respiratory failure , congestive heart failure, atrial fibrillation, hypertension and chronic kidney disease stage III. She is followed by Dr. Renee, Dr. Dao and Dr. Gauthier. She presents to the emergency department because of shortness of breath for the past 2 days. She reports of dyspnea on exertion, dyspnea at rest , orthopnea, wheezing and chronic cough. She has been using rescue inhaler and Symbicort. Her roller picker took her off diuretics because of her kidney dysfunction. Denies weight gain and has stable bilateral lower extremity edema. In the ED she was in A. fib RVR and was given 2 boluses of Cardizem 15 mg IV and started on Cardizem drip. She also was given IV Lasix and Solu- Medrol. CHF exac(preserved EF) with hypoxia likely secondary to RVR. Improved. CHF education, I/O and monitor weight. Given pulse doses of diuretics with close monitoring of renal function history of chronic kidney disease stage III. ECHO results : Normal left ventricular size. Wall thickness is normal. The left ventricular systolic function is normal with an estimated ejection fraction in the range of 60-65%. The left atrial size is mildly dilated. [id number] mitral valve regurgitation. Mild thickening of the aortic valve leaflets. COPD exac with CRF. Improved. Continue nebulization, steroids s/p Zithromax Fib with RVR. Improved ct p.o. Cardizem s/p Cardizem drip. TSH ok Leukocytosis. On Zithromax. Will not repeat while on steroids DVT prophylaxis on SCD and Coumadin Time Spent with Patient Total time spent providing and/or coordinating discharge services: Greater than 30 minutes Quality: VTE Deep Vein Thrombosis/Pulmonary Embolism Present on Admission: Yes Exam Narrative Exam Narrative: GENERAL: WD WN in [place] SKIN: Warm and dry. CARDIOVASCULAR: Irregularly irregular RESPIRATORY: No accessory muscle use. Clear to auscultation. Breath sounds equal bilaterally. GASTROINTESTINAL: Abdomen soft, non-tender, nondistended. MUSCULOSKELETAL: Extremities without clubbing, cyanosis but with trace leg edema. No obvious deformities. NEUROLOGICAL: Awake and alert. No obvious cranial nerve deficits. Motor grossly within normal limits. Five out of 5 muscle strength in the arms and legs. Normal speech. PSYCHIATRIC: Appropriate mood and affect; insight and judgment normal. Results Procedures completed during hospitalization: none Labs on day of discharge: Labs from last 24 hours 05/11/18 05/11/18 06:52 06:52 PT 20.1 H INR 2.0 Sodium 142 Potassium 3.9 Chloride 107 Carbon Dioxide 26.5 Anion Gap 9 BUN 47 H Creatinine 1.49 H Estimated GFR 33 L Random Glucose 111 H Calcium 9.2 Magnesium 2.2 Impressions ITS Impressions Chest X-Ray 05/09/18 02:31 CONCLUSION: 1. Borderline prominent heart with some interstitial prominence possibly representing some vascular congestion or volume overload. 2. No confluent infiltrate. Discharge Plan Discharge Disposition Patient Disposition: Disch W/Home Health Service Discharge Condition Condition: Stable Discharge Order Discharge Orders: Discharge Order (Routine); Ordered 05/11/18 Ordered By: Jt Ahuja Physicians Team Primary Care Provider: Deedee Asencio Attending Provider: Tayler Dasilva Other Providers: Jt Ahuja Rxs /Orders / Referrals /Forms Prescriptions: New prednisone 20 mg Tablet 20 mg PO DAILY Qty: 3 RF: 0 diltiazem HCl 120 mg Capsule,Extended Release 24hr 120 mg PO DAILY Qty: 30 RF: 0 Continue warfarin 3 mg Tablet 3 mg PO Q OTHER DAY RF: 0 rosuvastatin 10 mg Tablet 10 mg PO DAILY RF: 0 budesonide-formoterol [Symbicort] 160-4.5 mcg/actuation Hfa Aerosol Inhaler 2 puff INHALATION BID RF: 0 Ambulatory Orders / Order Sets / DME: Basic Metabolic Panel (Routine) Timeframe: [id number] Location: Determined by Patient Ordered By: Jt Ahuja Referrals: Deedee Asencio DO [Primary Care Provider] - See Instructions (f/u Dr Dao in 2 weeks, Dr Gauthier and Dr Renee per schedule) Post Discharge Care Plan Care Plan Goals: Your Health Problems: Goals to Promote Your Health: * To prevent worsening of your condition * To maintain your health at the optimal level Directions to Meet Your Goals: * Take your medications as prescribed * Follow your dietary instruction * Follow activity as directed * Keep your appointments as scheduled * Take your immunizations and boosters as scheduled * If your symptoms worsen call your PCP * If no PCP go to Urgent Care or Emergency Room Smoking is dangerous to your health. Avoid second hand smoke. You may reach the 24-hour crisis hotline for domestic abuse at . Discharge Interventions Interventions: Discharge Planning - Case Management Last Done: 05/10/18 15:48 Status ED Status: Left Department
== END 2018-05-11 12:18 | disposition home health service (06) | DRG 291 ==
LOC: NEPE 02:18 → NEDA 05:17 → N04 13:00
PROVIDERS: ADMIT Internal Medicine; ATTEND Internal Medicine
CPT/HCPCS: 71010; 71045; 80048; 80053; 83520; 83735; 83880; 84443; 84484; 85025; 85610; 85730; 87275; 87276; 87804; 90774; 90775; 90784; 93005; 93306; 94640; 94664; 94665; 96374; 96375; 99285; C8952; J1940; J2930; J7506; J7512